=== PATIENT | female | born 1980 | race Caucasian/White ===

== ENCOUNTER 2023-07-01 18:48 | Emergency (ER) | payer SELFPAY ==
--- OUTSIDE RECORDS SUMMARY | 2023-07-01 18:54 | XMS REPORT | Continuity of Care Document ---
:1980 Author Organization Formerly [facility] t Address [address] [facility] [address] [place] [address] Care Team Providers Name Role Phone Clem Sena Primary Care Physician collins Attending Clinician Unavailable HOLLY KERR Attending Clinician Unavailable Clem Sena Attending Clinician Valdo Crespo Attending Clinician VALDO CRESPO Attending Clinician Unavailable Du Orozco Attending Clinician Unavailable Alicja Laguerre Attending Clinician Keena Joya Attending Clinician Nikos Joshi Attending Clinician Physician, No Primary or Family Admitting Clinician Unavaila ble Payers Payer Name Policy Type Policy Number Effective Date Expiration Date S savita [employer] CHIP [id number] 2020 2022 00:00:00 00:00:00 [employer] P [id number] 2018 00:00:00 [employer] P [id number] 2020 00:00:00 Problems Condition Condition Condition Status Onset Resolution Last Treating Co mments Source Name Details Category Date Date Treatment Clinician Date Hydrosalpi Hydrosalp Diagnosis Active 2022-11-12 Memoria nx inx 11-09 05:46:12 l (disorder) (disorder) 00:00: Dony pankaj Active 00 11/09/2022 Diagnosis 11/12/2022 [facility] VAG BLEED VAG BLEED Diagnosis Active 2022-11-27 Memoria Active 11-09 14:22:00 l 11/09/2022 00:00: Alexis johnson [address],[facility] Disturbanc Disturban Diagnosis Active 2021-082022-08-03 Memoria e of ce of 10-01 10:49:01 l attention attention 00:00: Chirag elizabeth (finding) (finding) 00 Active 07/31/2022 Diagnosis 08/03/2022 [facility] Primary [facility] Tired Tired Diagnosis Active 2021-082022-08-03 Mem oria (finding) (finding) 10-01 10:49:01 l Active 00:00: [place] 07/31/2022 00 Diagnosis 08/03/2022 [facility] Primary [facility] ARM ARM Diagnosis Active 2020-10-14 Mem oria PAIN/INJUR PAIN/INJUR 10-06 21:42:00 l Y Y Active 00:00: [place] 10/06/2020 00 [facility] EYE PAIN EYE PAIN Diagnosis Active 2013-12-31 Memoria Active 12-31 15:33:00 l 12/31/2013 00:00: Alexis johnson [address] DIZZY, DIZZY, Diagnosis Active 2011-05-10 Me moria VOMITING VOMITING 05-10 09:55:00 l Active 07:00: [place] 05/10/2011 00 [facility] Ectopic Ectopic Problem Resolve 2020-10-08 M emoria d 23:03:55 l (disorder) (disorder) Dony pankaj Resolved Problem 10/08/2020 [facility] Obese Obese Problem Active 2023-01-04 Adán olivia class I class I 12:26:32 l (finding) (finding) Chirag elizabeth Active Problem 01/04/2023 [facility] Primary Care [facility] CCC Migraine Migraine Problem Active 2023-01-04 Memoria with aura with aura 12:26:32 l (disorder) (disorder) He rmann Active Problem 01/04/2023 [facility] Poor Poor Problem Active 2023-01-04 Memor ia concentrat concentrat 12:26:32 l ion ion [place] (finding) (finding) Active Problem 01/04/2023 [facility] History of Past Illness Condition Condition Condition Status Onset Resolution Last Treating Co mments Source Name Details Category Date Date Treatment Clinician Date Impaired Impaired Diagnosis 2023-01-04 2023-01-04 Memoria cognition cognition 01-01 12:26:32 12:26:32 l (finding) (finding) 15:25: Herm glenn 01/01/2023 00 Diagnosis 01/04/2023 [facility] Obesity Obesity Diagnosis 2022-11-19 2022-11-19 Memoria (disorder) (disorder) 11-16 11:31:49 11:31:49 l 11/16/2022 20:47: Alexis n Diagnosis 00 11/19/2022 [facility] Chronic Chronic Diagnosis 2022-11-12 2022-11-12 Memoria salpingiti salpingiti 11-10 05:46:12 05:46:12 l s s 01:19: [place] (disorder) (disorder) 00 11/10/2022 Diagnosis 11/12/2022 [facility] Female Female Diagnosis 2021-082022-08-03 2022-08-03 Memoria infertilit infertilit 10-01 10:49:01 10:49:01 l y y 16:30: [place] (disorder) (disorder) 00 07/31/2022 Diagnosis 08/03/2022 [facility] Fatigue Fatigue Diagnosis 2021-082022-08-03 2022-08-03 Memoria (finding) (finding) 10-01 10:49:01 10:49:01 l 07/31/2022 16:30: Alexis n Diagnosis 00 08/03/2022 [facility] Restless Restless Diagnosis 2021-082022-08-03 2022-08-03 Memoria legs legs - 10:49:01 10:49:01 l (disorder) (disorder) 16:29: He rmann 2 Diagnosis 08/03/2022 [facility] Patient Patient Diagnosis 2021-082022-08-03 2022-08-03 Memoria encounter encounter 10-01 10:49:01 10:49:01 l status status 16:14: [place] (finding) (finding) 00 07/31/2022 Diagnosis 08/03/2022 [facility] Unspecifie Unspecifi Problem 2020-10-08 2020-10-08 Memoria d fracture ed 10-06 23:03:55 23:03:55 l of right fracture 18:00: Alexis johnson forearm, of right 00 initial forearm, encounter initial for closed encounter fracture for closed fracture 10/06/2020 10/08/2020 [facility] Discharge Discharge Problem 2013-082014-05-20 2014-05-20 Memoria Diagnosis: Diagnosis: 0-05 03:26:54 03:26:54 l Miscarriag Miscarriag 05:00: Dony lira e e 00 05/17/2014 05/20/2014 [facility] Allergies, Adverse Reactions, Alerts Allergy Allergy Status Severity Reaction(s) Onset Inactive Treating Comm ents Source Name Type Date Date Clinician No Known DA Active [facility]ie 02-24 [place] s 00:00: [facility] 00 [place] [facility] Social History Social Habit Start Date Stop Date Quantity Comments Source History [facility] Alcohol Std Drinks Sexual [facility] Exposure to 2022-12-18 2022-12-28 Not sure [facility] SARS-CoV-2 (event) 00:00:00 07:26:00 Alcohol intake 2022-12-28 2022-12-28 Lifetime [facility] 00:00:00 00:00:00 non-drinker (finding) Tobacco use and 2022-12-11 2022-12-11 Smokeless [facility] exposure 00:00:00 00:00:00 tobacco non-user History SDPA 2022-12-11 2022-12-11 1 [facility] Alcohol Frequency 00:00:00 00:00:00 History SDOH 2022-12-11 2022-12-11 1 [facility] Alcohol Binge 00:00:00 00:00:00 Education 2022-12-11 2022-12-11 8 [facility] 00:00:00 00:00:00 Sex [birth year] At [birth year] [facility] 00:00:00 00:00:00 Hospital Smoking Status Start Date Stop Date Source Tobacco smoking consumption unknown [facility] Tobacco smoking status [facility] Medications Ordered Filled Start Stop Current Ordering Indication Dosage Frequency Signature Comments Components Source Medication Medication Date Date Medication? Clinician (SIG) Name Name SUMAtriptan Yes See Memori a 50 mg oral 5-05 Instructio l tablet 17:07: ns, TAKE 1 Yulissa nn 00 TABLET BY MOUTH ONCE NEEDED FOR HEADACHE *MAY REPEAT IN 2 HOURS IF NEEDED MAX 2/24 HOURS*, # 9 tab, 0 Refill(s), Pharmacy: [id number], 162.56, cm, 11/16/22 15:18:00 CDT, Height, 87.869, kg, 11/16/22 15:18:00 CDT, Weight SUMAtriptan Yes 50 mg = 1 M emoria 50 mg oral 4-06 tab, PO, l tablet 20:48: ONCE, PRN Alexis n Headache, may repeat dose in 2 hours if needed, maximum 2 tablets in 48 hours, # 9 tab, 0 Refill(s), Pharmacy: [id number], 162.56, cm, 11/16/22 15:18:00 CDT, Height, 87.869, kg, 11/16/22 15:18:00 CDT, Weight doxycycline Yes 100 mg = 1 Memoria monohydrate 3-31 tab, PO, l 100 mg oral 01:19: Q12H, X 10 [place] tablet day, # 20 tab, 0 Refill(s) Flagyl 500 Yes 500 mg = 1 M emoria mg oral 3-31 tab, PO, l tablet 01:19: Q8H, X 10 Alexis n day, # 30 tab, 0 Refill(s) gabapentin 2021-08 Yes 100 mg, Adán olivia 2-19 PO, 0 l 16:13: Refill(s) [place] 00 Acetaminoph No 1 tab, Adán olivia en 325 MG / 2-24 Route: PO, l Hydrocodone 19:44: Drug Form: [place] Bitartrate 00 TAB, 10 MG Oral Dosing Tablet Weight [Paradise 76.818, 10/325] kg, ONCE, STAT, Start date: 10/06/20 13:44:00 [employer]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 [place] 00 (Same as: Tylenol) Saline 2013-08 No Notes: Memoria Flush 0.9% 0-05 (Same as: l 23:33: BD [place] 00 Posiflush) ondansetron Yes Martha 4 mg, 1 Memoria 4 mg oral 05-10 Kat[place] tab, PO, l tablet, 16:38: ONCE, 3 [place] disintegrat 45 tab, ing Substituti on Allowed, Disolve tab under tongueDiso lve tab under tongue tetanus-dip No Martha 0.5 ml, Memoria htheria 05-10 [place] Route: IM, l toxoids 14:05: Drug Form: Herm glenn 00 INJ, ONCE, Start date: 05/10/11 9:05:00, Stop date: 05/10/11 9:05:00 ondansetron No Martha 4 mg, 2 Memoria 05-10 [place] mL, Route: l 14:05: IVP, Drug [place] 00 form: INJ, ONCE, Priority: STAT, Start date: 05/10/11 9:05:00, Stop date: 05/10/11 9:05:00 Saline No Martha 5 ml, Memor ia Flush 0.9% 05-10 [place] Route: l 14:05: IVP, Drug [place] 00 Form: INJ, PRN, PRN Line Flush, Start date: 05/10/11 9:05:00, Duration: 30 day, Stop date: 06/09/11 9:04:00 Lactated No Martha 1,000 mL, Memoria Ringers 05-10 [place] Rate: l (Bolus) IV 14:05: 1,000 Alexis n 1,000 mL 00 ml/hr, Infuse over: 1 hr, Route: IV, Total Volume: 1,000, Bolus Dose, Priority: STAT, Start date: 05/10/11 9:05:00, Duration: 1 doses or times, Stop date: 05/10/11 10:04:00 Immunizations Ordered Immunization Filled Immunization Date Status Commen ts Source Name Name [id number] Unknown Completed Mem orial [place] [id number] Unknown Completed Mem orial [place] [id number] Unknown Completed Mem orial [place] [id number] diphtheria/pertussis, Unknown Completed Mem orial [place] acel/tetanus adult Vital Signs Vital Name Observation Time Observation Value Comments Source Systolic blood 2022-12-28 13:00:00 123 mm[Hg] [facility] Diastolic blood 2022-12-28 13:00:00 80 mm[Hg] [facility] Heart rate 2022-12-28 13:00:00 74 /min [facility] temperature 2022-12-28 13:00:00 36.89 [facility] height 2022-12-28 13:00:00 [facility].6 [facility] weight 2022-12-28 13:00:00 88.814 [facility] BMI 2022-12-28 13:00:00 33.61 [facility]m2 [facility] Systolic blood 2022-12-11 14:01:00 111 mm[Hg] [facility] Diastolic blood 2022-12-11 14:01:00 75 mm[Hg] [facility] Heart rate 2022-12-11 14:01:00 68 /min [facility] 2022-12-11 14:01:00 36.67 [facility] Respiratory rate 2022-12-11 14:01:00 15 /min [facility] Body height 2022-12-11 14:01:00 162.6 [facility] weight 2022-12-11 14:01:00 [facility]451 [facility] BMI 2022-12-11 14:01:00 33.47 [facility]m2 [facility] Heart Rate 2023-01-01 14:52:00 [facility] [place] Systolic (mm Hg) 2023-01-01 14:52:00 Adán rial [place] Diastolic (mm Hg) 2023-01-01 14:52:00 Mem orial [place] Height 2023-01-01 14:52:00 5 [ft_i] [facility] [place] Weight 2023-01-01 14:52:00 [facility] [place] BMI Calculated 2023-01-01 14:52:00 Memori al [place] Temperature Oral (F) 2022-11-16 20:18:00 98.1 F [facility] [place] Heart Rate 2022-11-16 20:18:00 [facility] [place] Systolic (mm Hg) 2022-11-16 20:18:00 Adán rial [place] Diastolic (mm Hg) 2022-11-16 20:18:00 Mem orial [place] Height 2022-11-16 20:18:00 5 [ft_i] [facility] [place] Weight 2022-11-16 20:18:00 [facility] [place] BMI Calculated 2022-11-16 20:18:00 Memori al [place] Temperature Oral (F) 2022-11-10 01:28:00 98 F [facility] [place] Heart Rate 2022-11-10 01:28:00 [facility] [place] Systolic (mm Hg) 2022-11-10 01:28:00 Adán rial [place] Diastolic (mm Hg) 2022-11-10 01:28:00 Mem orial [place] Height 2022-11-09 18:45:00 5 [ft_i] [facility] [place] BMI Calculated 2022-11-09 18:45:00 Memori al [place] Weight 2022-11-09 18:45:00 [facility] [place] Temperature Oral (F) 2022-07-31 16:15:00 98.2 F [facility] [place] Heart Rate 2022-07-31 16:15:00 [facility] [place] Systolic (mm Hg) 2022-07-31 16:15:00 Adán rial [place] Diastolic (mm Hg) 2022-07-31 16:15:00 Mem orial [place] Height 2022-07-31 16:15:00 5 [ft_i] [facility] [place] Weight 2022-07-31 16:15:00 [facility] [place] BMI Calculated 2022-07-31 16:15:00 Memori al [place] Temperature Oral (F) 2020-10-06 20:00:00 98.2 F [facility] [place] Heart Rate 2020-10-06 20:00:00 [facility] [place] Respitory Rate 2020-10-06 20:00:00 Memori al [place] Systolic (mm Hg) 2020-10-06 20:00:00 Adán rial [place] Diastolic (mm Hg) 2020-10-06 20:00:00 Mem orial [place] Height 2020-10-06 18:32:00 170.18 cm [facility] [place] BMI Calculated 2020-10-06 18:32:00 Memori al [place] Weight 2020-10-06 18:32:00 [facility] [place] Systolic (mm Hg) 2020-10-06 18:32:00 Adán rial [place] Diastolic (mm Hg) 2020-10-06 18:32:00 Mem orial [place] Heart Rate 2020-10-06 18:32:00 [facility] [place] Respitory Rate 2020-10-06 18:32:00 Memori al [place] Temperature Oral (F) 2020-10-06 18:32:00 98.0 F [facility] [place] Systolic (mm Hg) 2014-05-18 02:01:00 Daán rial [place] Diastolic (mm Hg) 2014-05-18 02:01:00 Mem orial [place] Respitory Rate 2014-05-18 02:01:00 Memori al [place] Heart Rate 2014-05-18 02:01:00 [facility] [place] Systolic (mm Hg) 2014-05-18 00:46:00 Adán rial [place] Diastolic (mm Hg) 2014-05-18 00:46:00 Mem orial [place] Heart Rate 2014-05-18 00:46:00 [facility] [place] Respitory Rate 2014-05-18 00:46:00 Memori al [place] Height 2014-05-17 23:25:00 160.02 cm [facility] [place] BMI Calculated 2014-05-17 23:25:00 Memori al [place] Weight 2014-05-17 23:25:00 [facility] [place] Diastolic (mm Hg) 2014-05-17 23:25:00 Mem orial [place] Systolic (mm Hg) 2014-05-17 23:25:00 Adán rial [place] Heart Rate 2014-05-17 23:25:00 [facility] [place] Respitory Rate 2014-05-17 23:25:00 Memori al [place] Temperature Oral (F) 2014-05-17 23:25:00 98.4 F [facility] [place] Respitory Rate 2013-12-31 20:26:00 Memori al [place] Heart Rate 2013-12-31 20:26:00 [facility] [place] Temperature Oral (F) 2013-12-31 20:26:00 97.1 F [facility] [place] Diastolic (mm Hg) 2013-12-31 20:26:00 Mem orial [place] Systolic (mm Hg) 2013-12-31 20:26:00 Adán rial [place] Height 2013-12-31 18:49:00 162.56 cm [facility] [place] Weight 2013-12-31 18:49:00 [facility] [place] BMI Calculated 2013-12-31 18:49:00 Memori al [place] Heart Rate 2013-12-31 18:49:00 [facility] [place] Systolic (mm Hg) 2013-12-31 18:49:00 Adán rial [place] Respitory Rate 2013-12-31 18:49:00 Memori al [place] Diastolic (mm Hg) 2013-12-31 18:49:00 Mem orial [place] Temperature Oral (F) 2013-12-31 18:49:00 97.4 F [facility] [place] Systolic (mm Hg) 2011-05-10 16:36:00 Adán rial [place] Diastolic (mm Hg) 2011-05-10 16:36:00 Mem orial [place] Respitory Rate 2011-05-10 16:36:00 Memori al [place] Heart Rate 2011-05-10 16:36:00 [facility] [place] Height 2011-05-10 13:36:00 160.02 cm [facility] [place] Weight 2011-05-10 13:36:00 [facility] [place] Temperature Oral (F) 2011-05-10 13:36:00 97.6 F [facility] [place] Systolic (mm Hg) 2011-05-10 13:36:00 Adán rial [place] Heart Rate 2011-05-10 13:36:00 [facility] [place] Diastolic (mm Hg) 2011-05-10 13:36:00 Mem orial [place] Respitory Rate 2011-05-10 13:36:00 Memori al [place] Procedures Procedure Date / Time Performed Performing Clinician Sourc e POCT , URINE 2022-12-28 13:03:24 Holly [place] [facility] Pap smear and HPV 2022-12-28 05:00:00 [facility] cotesting Ovary operation [facility] Plan of Care Planned Activity Planned Date Details Comments Source Future Scheduled 2023-06-09 [facility] 20:44:26 (#1) [code = COVID-19 VACCINE (#1)] Future Scheduled 2023-06-09 Hepatitis C [facility] ospital Test 20:44:26 screening (procedure) [code = 422596040] Future Scheduled 2023-06-09 Screening for [facility] Test 20:44:26 malignant neoplasm of cervix (procedure) [code = 414312672] Future Scheduled 2023-06-09 BREAST CANCER [facility] Test 20:44:26 SCREENING [code = BREAST CANCER SCREENING] Future Scheduled 2023-06-09 INFLUENZA VACCINE Method [facility] Test 20:44:26 (#1) [code = INFLUENZA VACCINE (#1)] Encounters Start End Encounter Admission Attending Care Care Encounter Source Date/Time Date/Time Type Type Clinicians Facility Department ID 2023-01-[address] [facility] [id number] [place] 06:24:13 [id number] [facility] 2022-12-[address] [facility] [id number] [place] 08:31:44 [id number] [facility] 2022-11-[address] [facility] [id number] [place] 15:29:12 [id number] [facility] 2022-07-31 Outpatient lc.nyarp [facility] [id number] [place] 11:01:03 [id number] [facility] 2022-03-[address] [facility] [id number] [place] 08:32:11 [id number] [facility] 2021-05-26 Outpatient [facility] [id number] [place] 18:37:42 [id number] [facility] 2021-05-26 Outpatient [facility] [id number] [place] 18:00:31 [id number] [facility] 2023-01-12 2023-01-12 Outpatient TAT, [facility] [id number] [place] 08:50:00 08:50:00 HOLLY Hudson 2023-01-112023-01-11 Outpatient TAT, [facility] [id number] [place] 08:20:00 08:20:00 HOLLY phelps 2023-01-01 2023-01-02 Outpatient [facility] [id number] Memoria 15:00:00 04:59:59 Primary 03 l [facility] 2023-01-01 2023-01-01 Outpatient Jaida, [facility] [id number] 10:00:00 23:59:59 Clem 03 [facility] 2023-01-01 2023-01-01 Outpatient MHIE [facility] [id number] Memoria 10:00:00 10:00:00 03 l [place] 2022-12-28 2022-12-28 Ambulatory [facility] [id number] Memoria 20:20:00 20:20:00 Pre-Reg Primary 02 l [facility] 2022-12-28 2022-12-28 Outpatient MHIE [facility] [id number] Memoria 15:20:00 15:20:00 02 linda Wick 2022-12-28 2022-12-28 Outpatient Jaida, [facility] [id number] 15:20:00 15:20:00 Clem 02 [facility] 2022-12-28 2022-12-28 Procedure Tat, [facility] [id number] [place] 08:30:00 08:39:29 Visit Holly CHAN [id number] [facility] [id number] MEDICAL [id number] [address] 2 2022-12-21 2022-12-21 Outpatient TAT, [facility] [id number] [place] 09:10:00 09:10:00 HOLLY Hudson 2022-12-11 2022-12-11 Office Tat, [facility] [id number] [place] 09:30:00 10:07:39 Visit Holly LOPEZ [id number] H [facility] [id number] SPECIALTY [id number] CLINIC 5 2022-11-17 2022-11-17 Outpatient TAT, [facility] [id number] [place] 08:45:00 08:45:00 HOLLY phelps 2022-11-16 2022-11-17 Outpatient MHIE MG [id number] Memoria 20:20:00 04:59:59 Primary 01 l [facility] 2022-11-16 2022-11-16 Outpatient Jaida, MHMG MG [id number] 15:20:00 23:59:59 Clem 01 Guy 2022-11-16 2022-11-16 Outpatient MHIE IE [id number] Memoria 15:20:00 15:20:00 01 l [place] 2022-11-09 2022-11-10 Emergency MHIE [facility] [id number] Memoria 18:44:10 01:31:[address] 2022-11-09 2022-11-09 Outpatient Cherie, MHGHR MHR [id number] 13:44:10 20:31:00 Valdo Rosita Yoel 2022-11-09 2022-11-09 Emergency E CHERIE, MHNW MHNW [id number] MHNW 13:44:00 20:31:00 VALDO 2022-08-01 2022-08-02 Between MHIE MG [id number] Memoria 15:16:42 15:16:42 Visit Primary 06 [facility] 2022-08-01 2022-08-02 Outpatient MHMG MG [id number] 09:16:42 09:16:42 06 2022-07-31 2022-08-01 Outpatient MHIE MG [id number] Memoria 16:30:00 05:59:59 Primary 00 l [facility] 2022-07-31 2022-07-31 Outpatient Jaida, YADIRAMG MG [id number] 10:30:00 23:59:59 Clem 00 Guy 2022-07-31 2022-07-31 Outpatient MHIE MHIE [id number] Memoria 10:30:00 10:30:00 00 linda Wick 2022-02-24 2022-02-24 Emergency Du Navarrete [facility] [id number] [facility] 19:42:00 20:49:00 38 [facility] 2022-02-24 2022-02-24 Emergency Du Navarrete [facility] [id number] 19:42:00 19:42:00 [id number] [place] [facility] 2020-12-15 2020-12-16 Emergency [facility] [id number] [place] 00:00:00 00:00:[address] 2020-10-06 2020-10-06 Emergency [facility] [id number] Memoria 17:05:16 20:32:[address] 2020-10-06 2020-10-06 Outpatient Carlotta [facility] [id number] 11:05:16 14:32:00 Alicja 04 Nieves 2014-05-17 2014-05-18 [facility] [id number] Memoria 23:12:00 02:11:[address] 2014-05-17 2014-05-17 Outpatient Mahnaz, 2.16.840. [id number] 18:12:00 21:11:00 Keena [id number] Quy[place] [id number] 3677-05-21 2013-12-31 [facility] [id number] Memoria 18:28:00 21:09:[address] 2013-12-31 2013-12-31 Outpatient Callielynn, 2.16.840. [id number]. [id number] 13:28:00 16:09:00 Tatsuo [id number] 5108-09-28 2011-05-10 Emergency [facility] 37 [id number] Memoria 08:34:00 12:19:[address] Results Test Description Test Time Test Comments Results Result Comments Source POCT , urine manually resulted 2022-12-28 13:03:24 Test Item Value Reference Range Interpretation Comme nts Preg Test, Ur (test code = 7975138) Negative Negative Lab Interpretation (test code = 46629-6) [id number] 01:16:00 Test Item Value Reference Range Interpretation Comments Source APTIMA (test Vaginal *NA*(11/09/22 code = Source APTIMA) 8:16 PM) [facility]2023-03-31 01:16:00 Test Item Value Reference Range Interpretation Comments C trachomatis by Amp Det Negative (11/09/22 (APTIMA) (test code = C 8:16 PM) trachomatis by Amp Det (APTIMA)) [facility]2023-03-31 01:16:00 Test Item Value Reference Range Interpretation Comments N gonorrhea by Amp Det Negative (11/09/22 8:16 (APTIMA) (test code = N PM) gonorrhea by Amp Det (APTIMA)) [place] [id number] 23:36:03 Test Item Value Reference Range Interpretation Comments RADRPT (test code PROCEDURE INFORMATION: = RADRPT) Exam: US Pelvis Complete, Transabdominal and US Pelvis, Transvaginal Exam date and time: 11/09/2022 4:16 PM Age: 42 years old Clinical indication: /pelvic pain, not , recent spontaneous ab; () TECHNIQUE: Imaging protocol: Real-time complete transabdominal and transvaginal pelvic ultrasound with image documentation. Transvaginal imaging was used for better evaluation of the endometrium, adnexa, and/or cervix. COMPARISON: PREG < 14WKS SING GEST W TRANSVAG/DOP US 05/17/2014 7:03 PM FINDINGS: Uterus: Uterus measures 8.9 cm length. Endometrial stripe measures 1.2 cm thickness. Cervix: Nabothian cyst. Right ovary/adnexa: Right ovary measures 4.1 x 2.3 x 2.9 cm with Doppler flow. Left ovary/adnexa: Left ovary measures 2.7 x 1.7 x 1.6 cm with Doppler flow. Hypoechoic tubular, avascular focus in the left adnexa. Intraperitoneal space: No free fluid is seen. Urinary bladder: The bladder is under distended. IMPRESSION: 1. No evidence of retained products of conception. 2. Probable left hydrosalpinx. Follow-up ultrasound can reassess. Jon Coronado MD On 11/09/2022 18:35:46; [id number] [place] [id number] 19:46:00 Test Item Value Reference Range Interpretation Comments UA Color (test code = Yellow *NA*(11/09/22 UA Color) 2:46 PM) [facility] AND [id number] 19:46:00 Test Item Value Reference Range Interpretation Comments UA Turbidity (test code Slight *ABN*(11/09/22 = UA Turbidity) 2:46 PM) [facility] AND [id number] 19:46:00 Test Item Value Reference Range Interpretation Comments UA Spec Grav (test code = UA Spec 1.020 1 Grav) [facility] AND [id number] 19:46:00 Test Item Value Reference Range Interpretation Comments UA pH (test code = UA pH) 5.0 1 5.0-8.0 [facility] AND [id number] 19:46:00 Test Item Value Reference Range Interpretation Comments UA Protein (test code = UA Negative mg/dL Protein) [facility] AND [id number] 19:46:00 Test Item Value Reference Range Interpretation Comments UA Glucose (test code = UA Negative mg/dL Glucose) [facility] AND [id number] 19:46:00 Test Item Value Reference Range Interpretation Comments UA Bili (test code = Negative *NA*(11/09/22 UA Bili) 2:46 PM) [facility] AND [id number] 19:46:00 Test Item Value Reference Range Interpretation Comments UA Blood (test code = Large *ABN*(11/09/22 UA Blood) 2:46 PM) [facility] AND [id number] 19:46:00 Test Item Value Reference Range Interpretation Comments UA Nitrite (test code Negative (11/09/22 2:46 = UA Nitrite) PM) [facility] AND [id number] 19:46:00 Test Item Value Reference Range Interpretation Comments UA Leuk Est (test Negative (11/09/22 2:46 code = UA Leuk Est) PM) [facility] AND [id number] 19:46:00 Test Item Value Reference Range Interpretation Comments UA Ascorbic Acid (test Negative 2*NA*(11/09/22 code = UA Ascorbic 2:46 PM) Acid) [facility] AND [id number] 19:46:00 Test Item Value Reference Range Interpretation Comments UA Sq Epi (test code = UA Sq Epi) Few /LPF [facility] [id number] 19:46:00 Test Item Value Reference Range Interpretation Comments UA WBC (test code = UA WBC) 2 <=5 [facility] [id number] 19:46:[facility] Test Item Value Reference Range Interpretation Comments UA RBC (test code = UA RBC) 4 <=2 [facility] [id number] 19:46:00 Test Item Value Reference Range Interpretation Comments UA Mucus (test code = UA Mucus) Few /LP[facility] [id number] 19:46:00 Test Item Value Reference Range Interpretation Comments UA Ketones (test code = UA Ketones) Negative [facility] AND [id number] 19:46:00 Test Item Value Reference Range Interpretation Comments UA Urobilinogen (test code = UA <=1.0 mg/dL 0.1-1.0 Urobilinogen) [facility] Hospit[id number] 19:28:00 Test Item Value Reference Range Interpretation Comments WBC (test code = WBC) 12.4 3.7-10.4 [facility] HospitalYmibrjbYUEVOOPWNC7623-34-16 19:28:00 Test Item Value Reference Range Interpretation Comments RBC (test code = RBC) 4.66 4.20-5.40 [facility] HospitalSkehrinCPGASDYRMU8311-80-38 19:28:00 Test Item Value Reference Range Interpretation Comments Hgb (test code = Hgb) 12.8 12.0-16.0 [facility] HospitalRblgixdFUGMOUQWTL2714-62-54 19:28:00 Test Item Value Reference Range Interpretation Comments Hct (test code = Hct) 37.4 36.0-48.0 [facility] HospitalLwsgzzaDCFZBLOFTT8934-68-18 19:28:00 Test Item Value Reference Range Interpretation Comments MCV (test code = MCV) 80.4 80.0-98.0 [facility] HospitalMviozkdTUYNSGOGMO6411-42-51 19:28:00 Test Item Value Reference Range Interpretation Comments MCH (test code = MCH) 27.4 pg 27.0-31.0 [facility] HospitalSmvnxnlNSCJIVKDTP6679-49-90 19:28:00 Test Item Value Reference Range Interpretation Comments MCHC (test code = MCHC) 34.1 32.0-36.0 [facility] HospitalKpttshhGVDTPHRQML7736-78-13 19:28:00 Test Item Value Reference Range Interpretation Comments RDW (test code = RDW) 14.1 11.5-14.5 [facility] HospitalWcrzkemZHIJOBVAWR5624-82-67 19:28:00 Test Item Value Reference Range Interpretation Comments Platelet (test code = Platelet) 298 133-450 [facility] HospitalJfgrkomQBIIFURBJQ4480-44-26 19:28:00 Test Item Value Reference Range Interpretation Comments MPV (test code = MPV) 7.2 7.4-10.4 [facility] HospitalRwsebhvNKTJOHOIYC2275-88-20 19:28:00 Test Item Value Reference Range Interpretation Comments Segs (test code = Segs) 68.1 45.0-75.0 [facility] HospitalGkahehvZCBALFOOFG9479-76-53 19:28:00 Test Item Value Reference Range Interpretation Comments Lymphocytes (test code = Lymphocytes) 24.6 20.0-40.0 [facility] HospitalIymjwoqKAVXSUFCWP5399-53-27 19:28:00 Test Item Value Reference Range Interpretation Comments Monocytes (test code = Monocytes) 4.8 2.0-12.0 [facility] HospitalUlwhlvmGBMZNRHMLZ2837-33-04 19:28:00 Test Item Value Reference Range Interpretation Comments Eosinophils (test code = Eosinophils) 2.0 <=4.0 [facility] HospitalBjggarzJHBHHLKYTY8618-29-75 19:28:00 Test Item Value Reference Range Interpretation Comments Basophils (test code = Basophils) 0.5 <=1.0 [facility] HospitalIkuqpzrEXEYEUXNXJ5233-91-53 19:28:00 Test Item Value Reference Range Interpretation Comments Neutrophils # (test code = Neutrophils 8.4 1.5-8.1 #) [facility] HospitalCfsdcdoBYNNMIFVEQ9980-29-04 19:28:00 Test Item Value Reference Range Interpretation Comments Lymphocytes # (test code = Lymphocytes 3.0 1.0-5.5 #) [facility] HospitalKixgbftJXOVDCPFUT6237-82-39 19:28:00 Test Item Value Reference Range Interpretation Comments Monocytes # (test code = Monocytes #) 0.6 <=0.8 [facility] HospitalKwkemaqTQHPFOGCXZ3870-19-03 19:28:00 Test Item Value Reference Range Interpretation Comments Eosinophils # (test code = Eosinophils 0.2 <=0.5 #) [facility] HospitalVgcgrnpIOIIBYXVCE3132-19-11 19:28:00 Test Item Value Reference Range Interpretation Comments Basophils # (test code = Basophils #) 0.1 <=0.2 [facility]ieVoxliArisoko QQHTHZL6010-34-75 19:28:00 Test Item Value Reference Range Interpretation Comments ABO/Rh (test code = ABO/Rh) O [facility]G [facility] [id number] 19:28:00 Test Item Value Reference Range Interpretation Comments Antibody Scrn (test Negative (11/09/22 2:28 code = Antibody Scrn) PM) [facility]IueipniGMSPDYUXY7784-78-89 19:28:00 Test Item Value Reference Range Interpretation Comments Glucose Lvl (test code = Glucose Lvl) 98 70-99 [facility]ieLparkgqLBYCSHKEE4530-16-82 19:28:00 Test Item Value Reference Range Interpretation Comments BUN (test code = BUN) 20 7-22 [facility]ieMunppmcGPFLBILVI1002-09-72 19:28:00 Test Item Value Reference Range Interpretation Comments Creatinine Lvl (test code = Creatinine 0.80 0.50-1.40 Lvl) [facility]ieOmolxpoBXAHVHMOL1439-34-86 19:28:00 Test Item Value Reference Range Interpretation Comments Sodium Lvl (test code = Sodium Lvl) 136 135-145 [facility]ieZpiommcGEFOYYRJI1887-24-03 19:28:00 Test Item Value Reference Range Interpretation Comments Potassium Lvl (test code = Potassium 3.7 3.5-5.1 Lvl) [facility]ieAzqqwlmGEVMLBTUU5405-67-51 19:28:00 Test Item Value Reference Range Interpretation Comments Chloride Lvl (test code = Chloride Lvl) 108 95-109 [facility]ieTkigkgzXMLAOQERF3187-55-90 19:28:00 Test Item Value Reference Range Interpretation Comments CO2 (test code = CO2) 24 24-32 [facility] ResourcesNchoxwhPDCXVSHYV0653-75-80 19:28:00 Test Item Value Reference Range Interpretation Comments Calcium Lvl (test code = Calcium Lvl) 8.8 8.5-10.5 [facility] ResourcesWhqjikrUPIPALDZT8124-40-68 19:28:00 Test Item Value Reference Range Interpretation Comments Total Protein (test code = Total 7.7 6.4-8.4 Protein) [facility] ResourcesGjblojwXJAWGKHDV5141-83-19 19:28:00 Test Item Value Reference Range Interpretation Comments Albumin Lvl (test code = Albumin Lvl) 3.2 3.5-5.0 [facility] ResourcesSucdoxbXHNXPQOXW0245-24-14 19:28:00 Test Item Value Reference Range Interpretation Comments ALT (test code = ALT) 32 <=65 [facility]IsnwskxXRJJDKXWU8369-00-27 19:28:00 Test Item Value Reference Range Interpretation Comments AST (test code = AST) 15 <=37 [facility] ResourcesPrnxlazVFTSFSTON7400-43-60 19:28:00 Test Item Value Reference Range Interpretation Comments Alk Phos (test code = Alk Phos) 70 39-136 [facility] ResourcesHuhedouAYFJRKGXO5838-19-82 19:28:00 Test Item Value Reference Range Interpretation Comments Bili Total (test code = Bili Total) 0.2 0.2-1.3 [facility]SovqjhfOHWKIQGDZ7579-89-22 19:28:00 Test Item Value Reference Range Interpretation Comments AGAP (test code = AGAP) 7.7 10.0-20.0 [facility] Resour[id number] 19:28:00 Test Item Value Reference Range Interpretation Comments B/C Ratio (test code = B/C Ratio) 25 1 6-25 [facility] ResourcesCgdkreqHPADMBCQG8617-13-44 19:28:00 Test Item Value Reference Range Interpretation Comments Globulin (test code = Globulin) 4.5 2.7-4.2 [facility] ResourcesBkomzrgSPIUCDGZH2472-39-18 19:28:00 Test Item Value Reference Range Interpretation Comments A/G Ratio (test code = A/G Ratio) 0.7 1 0.7-1.6 [facility]OmnmjzvLUULKEFMU1411-19-76 19:28:00 Test Item Value Reference Range Interpretation Comments eGFR (test code = eGFR) 94 [facility] ResourcesDqzkjmqEBEDOMSUP0764-24-39 19:28:00 Test Item Value Reference Range Interpretation Comments Lipase Lvl (test code = Lipase Lvl) 75 73-393 [facility] ResourcesFqogdotOKOEQFSOS6162-50-79 19:28:00 Test Item Value Reference Range Interpretation Comments S Preg (test code = S Negative *NA*(11/09/22 Preg) 2:28 PM) [facility] ResourcesXnimuwvKNVJBLPJQ8181-70-23 16:55:00 Test Item Value Reference Range Interpretation Comments Glucose Lvl (test code = Glucose Lvl) 82 65-99 [place] [id number] 16:55:00 Test Item Value Reference Range Interpretation Comments BUN (test code = BUN) 20 7-25 [facility] ResourcesUihggzsPADKUGCMB6277-96-99 16:55:00 Test Item Value Reference Range Interpretation Comments Creatinine Lvl (test code = Creatinine 0.67 0.50-0.99 Lvl) [facility] ResourcesRjwwpkzWTTZCLHTG2494-23-56 16:55:00 Test Item Value Reference Range Interpretation Comments eGFR (test code = eGFR) 113 [facility] ResourcesTutiyjmGDOVXZPXD8141-50-19 16:55:00 Test Item Value Reference Range Interpretation Comments B/C Ratio (test code = B/C NOT APPLICABLE 02-01 Ratio) [place] [id number] 16:55:00 Test Item Value Reference Range Interpretation Comments Sodium Lvl (test code = Sodium Lvl) 140 135-146 [facility] ResourcesStwlyybXUCLKKPLC8613-61-11 16:55:00 Test Item Value Reference Range Interpretation Comments Potassium Lvl (test code = Potassium 4.8 3.5-5.3 Lvl) [facility] ResourcesJucdqzsCGVVQMAMV9110-53-41 16:55:00 Test Item Value Reference Range Interpretation Comments Chloride Lvl (test code = Chloride Lvl) 105 98-110 [facility] ResourcesVjvqextACJFCXCYI9695-89-04 16:55:00 Test Item Value Reference Range Interpretation Comments CO2 (test code = CO2) 25 20-32 [facility] ResourcesUchtmmtODBPMVZAM7773-86-57 16:55:00 Test Item Value Reference Range Interpretation Comments Calcium Lvl (test code = Calcium Lvl) 8.9 8.6-10.2 [facility] ResourcesXmwpnzgKJWMMEPIT5573-64-44 16:55:00 Test Item Value Reference Range Interpretation Comments Total Protein (test code = Total 7.3 6.1-8.1 Protein) [facility]OmtszhrVQLSEJUNL9624-40-57 16:55:00 Test Item Value Reference Range Interpretation Comments Albumin Lvl (test code = Albumin Lvl) 4.0 3.6-5.1 [facility] ResourcesJuvpezzOWMLLQPWY8410-93-65 16:55:00 Test Item Value Reference Range Interpretation Comments Globulin (test code = Globulin) 3.3 1.9-3.7 [facility]VmoftbjVMXRXFOQI9173-82-49 16:55:00 Test Item Value Reference Range Interpretation Comments A/G Ratio (test code = A/G Ratio) 1.2 1.0-2.5 [facility]PrrtwnaLNJKLMBSF9677-10-91 16:55:00 Test Item Value Reference Range Interpretation Comments Bili Total (test code = Bili Total) 0.4 0.2-1.2 [facility] ResourcesDqymztyZJKDPYFHY5891-19-56 16:55:00 Test Item Value Reference Range Interpretation Comments Alk Phos (test code = Alk Phos) 60 31-125 [facility] ResourcesQjygtuhGJGWUAMCA0177-76-24 16:55:00 Test Item Value Reference Range Interpretation Comments ASPARTATE TRANSAMINASE (test code = 14 10-30 ASPARTATE TRANSAMINASE) [facility]EnxfftkNZESESSSH2871-15-85 16:55:00 Test Item Value Reference Range Interpretation Comments ALANINE AMINOTRANSFERASE (test code = 21 6-29 ALANINE AMINOTRANSFERASE) [facility] ResourcesMjmkrrfOVYJYEVYF0859-81-94 16:55:00 Test Item Value Reference Range Interpretation Comments Chol (test code = Chol) 146 [facility] ResourcesLkgsqacKQJDLROTA1582-86-08 16:55:00 Test Item Value Reference Range Interpretation Comments HDL (test code = HDL) 44 [facility] ResourcesPdsbmfsWERYTIZCC1402-14-89 16:55:00 Test Item Value Reference Range Interpretation Comments Trig (test code = Trig) 89 [facility] ResourcesQzmphajEESCNMAJH6545-53-17 16:55:00 Test Item Value Reference Range Interpretation Comments LDL (Calculated) (test code = LDL 84 (Calculated)) [facility] ResourcesZkohkriRCCSEIQDT7659-92-62 16:55:00 Test Item Value Reference Range Interpretation Comments Chol/HDL Ratio (test code = Chol/HDL 3.3 Ratio) [facility] ResourcesObawrfzXDWHFMLUA3932-40-36 16:55:00 Test Item Value Reference Range Interpretation Comments Non HDL Chol (test code = Non HDL Chol) 102 [facility] ResourcesUemdpqnWEJFKTDEU6742-88-18 16:55:00 Test Item Value Reference Range Interpretation Comments Hgb A1C (test code = Hgb A1C) 5.2 [facility] ResourcesBczyqcwYBUFWGJDD9930-14-90 16:55:00 Test Item Value Reference Range Interpretation Comments TSH (test code = TSH) 2.23 [facility] HospitalGbyjqvlTCEPUHVKRK5034-67-68 16:55:00 Test Item Value Reference Range Interpretation Comments WBC X 10x3 (test code = WBC X 10x3) 8.4 3.8-10.8 [facility] HospitalWevxhbcACMCNLZIZA2930-39-13 16:55:00 Test Item Value Reference Range Interpretation Comments RBC X 10x6 (test code = RBC X 10x6) 4.76 3.80-5.10 [place] 997082-12-19 16:55:00 Test Item Value Reference Range Interpretation Comments Hgb (test code = Hgb) 12.8 11.7-15.5 [facility] HospitalEjdklgxKWJBYNNLFX9535-21-68 16:55:00 Test Item Value Reference Range Interpretation Comments Hct (test code = Hct) 38.5 35.0-45.0 [facility] HospitalUgzbblsUHKPXPEFXF4670-73-21 16:55:00 Test Item Value Reference Range Interpretation Comments MCV (test code = MCV) 80.9 80.0-100.0 [facility] HospitalBjobqwuAEZUJPKPRB5281-14-61 16:55:00 Test Item Value Reference Range Interpretation Comments MCH (test code = MCH) 26.9 pg 27.0-33.0 [facility] HospitalKhkolaqURCUAJFUBT8615-45-00 16:55:00 Test Item Value Reference Range Interpretation Comments MCHC (test code = MCHC) 33.2 32.0-36.0 [facility] HospitalLcrxmacRVGBKEZVZZ7802-67-42 16:55:00 Test Item Value Reference Range Interpretation Comments RDW (test code = RDW) 12.7 11.0-15.0 [facility] HospitalOsuurdcOYFLMOYEGU4271-42-28 16:55:00 Test Item Value Reference Range Interpretation Comments Platelet (test code = Platelet) 335 140-400 [facility] HospitalExdjqwjTOTWNQQQPK6719-30-61 16:55:00 Test Item Value Reference Range Interpretation Comments MPV (test code = MPV) 9.3 7.5-12.5 [place] [id number] 16:55:00 Test Item Value Reference Range Interpretation Comments Neutrophils # (test code = Neutrophils 5065 0715-1126 #) [facility] HospitalRfgzqpuIYHYNGWUJH6692-89-40 16:55:00 Test Item Value Reference Range Interpretation Comments Lymphocytes # (test code = Lymphocytes 3900 850-3900 #) [facility] HospitalBgqynmcDYZVRKKEPL6480-16-55 16:55:00 Test Item Value Reference Range Interpretation Comments Monocytes # (test code = Monocytes #) 462 200-950 [facility] HospitalYiqosmzCDKPAWUKBV8982-07-58 16:55:00 Test Item Value Reference Range Interpretation Comments Eosinophils # (test code = Eosinophils 143 15-500 #) [facility]RmboxurMDRXBNSYBR7295-93-65 16:55:00 Test Item Value Reference Range Interpretation Comments Basophils # (test code = Basophils #) 50 <=200 [facility] FntcidnXLVACBMLII6477-00-70 16:55:00 Test Item Value Reference Range Interpretation Comments Segs (test code = Segs) 60.3 [facility] HospitalFpnbvzdYXMBUUXVZG4868-09-79 16:55:00 Test Item Value Reference Range Interpretation Comments Lymphocytes (test code = Lymphocytes) 31.9 [facility] KgehtijXCIOYJKMJM0679-45-70 16:55:00 Test Item Value Reference Range Interpretation Comments Monocytes (test code = Monocytes) 5.5 [facility] KyrhyfmRSJMIZACRU9976-08-32 16:55:00 Test Item Value Reference Range Interpretation Comments Eosinophils (test code = Eosinophils) 1.7 [facility] EzfqaezVUGCLMDVLN5179-96-01 16:55:00 Test Item Value Reference Range Interpretation Comments Basophils (test code = Basophils) 0.6 [facility] AND [id number] 16:55:00 Test Item Value Reference Range Interpretation Comments UA Color (test code = UA Color) YELLOW [facility] AND [id number] 16:55:00 Test Item Value Reference Range Interpretation Comments UA Turbidity (test code = UA Turbidity) CLEAR [facility] AND [id number] 16:55:00 Test Item Value Reference Range Interpretation Comments UA Spec Grav (test code = UA Spec 1.022 1 1.001-1.035 Grav) [facility] AND [id number] 16:55:00 Test Item Value Reference Range Interpretation Comments UA pH (test code = UA pH) < OR = 5.0 5.0-8.0 [facility] AND [id number] 16:55:00 Test Item Value Reference Range Interpretation Comments UA Glucose (test code = UA Glucose) NEGATIVE [facility] AND [id number] 16:55:00 Test Item Value Reference Range Interpretation Comments UA Bili (test code = UA Bili) NEGATIVE [facility] [id number] 16:55:00 Test Item Value Reference Range Interpretation Comments UA Ketones (test code = UA Ketones) NEGATIVE [facility] [id number] 16:55:00 Test Item Value Reference Range Interpretation Comments UA Blood (test code = UA Blood) TRACE [facility] AND [id number] 16:55:00 Test Item Value Reference Range Interpretation Comments UA Protein (test code = UA Protein) NEGATIVE [facility] AND [id number] 16:55:00 Test Item Value Reference Range Interpretation Comments UA Nitrite (test code = UA Nitrite) NEGATIVE [facility] AND [id number] 16:55:00 Test Item Value Reference Range Interpretation Comments UA Leuk Est (test code = UA Leuk NEGATIVE Est) [facility] AND [id number] 16:55:00 Test Item Value Reference Range Interpretation Comments UA WBC (test code = UA WBC) NONE SEEN [facility] AND [id number] 16:55:00 Test Item Value Reference Range Interpretation Comments UA RBC (test code = UA RBC) 3-10 [facility] AND [id number] 16:55:00 Test Item Value Reference Range Interpretation Comments UA Sq Epi (test code = UA Sq Epi) 0-5 [facility] AND [id number] 16:55:00 Test Item Value Reference Range Interpretation Comments UA Bacteria (test code = UA NONE SEEN Bacteria) [facility] AND [id number] 16:55:00 Test Item Value Reference Range Interpretation Comments UA Hyal Cast (test code = UA Hyal NONE SEEN Cast) [facility] AND [id number] 16:55:00 Test Item Value Reference Range Interpretation Comments UA Comment 2 (test code = UA SEE COMMENT Comment 2) [facility] [id number] 20:40:00 Test Item Value Reference Range Interpretation Comments SODIUM (test code 140 mmol/L 136-145 N Please not e: New = NA) Reference Range Sep 2020 POTASSIUM (test 4.8 mmol/L 3.5-5.1 N code = K) CHLORIDE (test 106 mmol/L 98-107 N Please note: New code = CL) Reference Range Sep 2020 CARBON DIOXIDE 26 mmol/L 20-31 N Please note: New (test code = CO2) Reference Range Sep 2020 GLUCOSE (test code 74 mg/dL 74-106 N Please no te: New = GLU) Reference Range Sep 2020 BLOOD UREA 17 mg/dL 9-23 N Please note: Ne w NITROGEN (test Reference Ran ge Fe code = BUN) 2020 GLOMERULAR >=60 max >60 Units are FILTRATION RATE estimate mL/min mL/min/1. 73m2 The (test code = GFR) estimated glomerular filtration rate is computed usingpatient ra ce, age (>18), sex, and serum creatinin e. If anyof the neede d data elements a re missing the Laboratory carl ot compute an estimation of t he glomerular filtration rate . CREATININE (test 0.70 mg/dL 0.55-1.02 N Please note : New code = CREAT) Reference Rang e Sep 2020 CALCIUM (test code 8.2 mg/dL 8.7-10.4 L Please no te: New = CA) Reference Range Sep 2020 HCG [id number] 20:37:00 Test Item Value Reference Range Interpretation Comments HCG SERUM (test 0 mIU/mL Please note: New Reference code = HCG) Range Sep 2020 INTERPRETATIVE DATA:Beta hCG Quant : Serum s amples from healthy individ ualsSample Category Refere nce Interval mIU/Ml 2.5-97.5 PercentileNon-P regnant Females (Age: 1 7 54) 1.5-4.2 Postmenopausal FemalesAge: >/= 41 1.8-10.1 During (weeks of -defin ded as completed)Intac t human chorionic gonad otropin + the B-subunit Weeks of Gestation Mean (mIUnits/m L) Range (mIUnits/mL)3 1 7.5 5.8 - 71.24 141 9.5 - 7505 1398 217 - 82109 333 9 158 - 390671 10923 36 97 - [id number] 91380 11967 - 1 681392 111118 54331 - [id number] 0 57761 58391 - [id number] 6667 6 20931 - [id number] 94056 24140 - 1502145 10118 1 5422 - [id number] 53030 9 565 - [id number] 52158 8175 - 5 [id number] 00065 0776 - 96029 DATE OF LAST MENSTRUAL PERIOD: 12/18/21CBC W/AUTO [id number] 20:20:00 Test Item Value Reference Range Interpretation Comments WHITE BLOOD CELL (test code = 10.4 x10 3/uL 4.8-10.8 N WBC) RED BLOOD CELL (test code = 4.73 x10 6/uL 4.20-5.40 N RBC) HEMOGLOBIN (test code = HGB) 12.9 g/dL 12.0-16.0 N HEMATOCRIT (test code = HCT) 39.0 % 37.0-47.0 N MEAN CELL VOLUME (test code = 82.5 fL 81.0-99.0 N MCV) MEAN CELL HGB (test code = MCH) 27.3 pg 27-31 N MEAN CELL HGB CONCENTRATION 33.1 G/DL 33-36.5 N (test code = MCHC) RED CELL DISTRIBUTION WIDTH 12.9 % 12.9-16.9 N (test code = RDW) PLATELET COUNT (test code = 350 x10 3/uL 150-440 N PLT) MEAN PLATELET VOLUME (test code 9.2 fL 8.9-12.4 N = MPV) NEUTROPHIL % (test code = NT%) 59.9 % 42.2-75.2 N LYMPHOCYTE % (test code = LY%) 31.8 % 20.5-51.1 N MONOCYTE % (test code = MO%) 5.4 % 1.7-9.3 N EOSINOPHIL % (test code = EO%) 2.2 % 0.0-7.0 N BASOPHIL % (test code = BA%) 0.5 % 0-2.5 N NEUTROPHIL # (test code = NT#) 6.25 x10 3/uL 1.80-7.70 N LYMPHOCYTE # (test code = LY#) 3.32 x10 3/uL 1.00-4.80 N MONOCYTE # (test code = MO#) 0.56 x10 3/uL 0.00-0.80 N EOSINOPHIL # (test code = EO#) 0.23 x10 3/uL 0.00-0.45 N BASOPHIL # (test code = BA#) 0.05 x10 3/uL 0.0-0.20 N UA RFLX MICR CULT IF [id number] 20:19:00 Test Item Value Reference Range Interpretation Comments UA COLOR (test code = YELLOW DISCRIPT YELLOW COLU) UA APPEARANCE (test code = CLEAR DISCRIPT CLEAR APPU) UA GLUCOSE DIPSTICK (test NEGATIVE mg/dL NEGATIVE code = DGLUU) UA BILIRUBIN DIPSTICK NEGATIVE NEGATIVE (test code = BILU) UA KETONE DIPSTICK (test NEGATIVE mg/dL NEGATIVE code = KETU) UA SPECIFIC GRAVITY (test >=1.030 1.005-1.030 code = SGU) UA BLOOD DIPSTICK (test LARGE NEGATIVE A code = EMMY) UA PH DIPSTICK (test code 5.5 5.0-9.0 = MARY) UA PROTEIN DIPSTICK (test NEGATIVE mg/dL NEGATIVE code = PROU) UA UROBILINOGEN DIPSTICK 0.2 mg/dL 0.2-1.0 (test code = URO) UA NITRITE DIPSTICK (test NEGATIVE NEGATIVE code = NAM) UA LEUKOCYTE ESTERASE NEGATIVE NEGATIVE DIPSTICK (test code = LEUU) UA WBC (test code = WBCU) NONE SEEN #WBC/HPF 0-2 UA RBC (test code = RBCU) NONE SEEN #RBC/HPF 0-2 UA BACTERIA (test code = NONE SEEN /HPF NONE-TRACE BACU) UA SQUAMOUS CELLS (test 2+ /LPF NONE-TRACE A code = SQU) Indication for culture: Suprapubic PainUR HCG [id number] 20:19:00 Test Item Value Reference Range Interpretation Comments UR HCG QUAL (test code = HCGQLU) NEGATIVE NEGATIVE Indication for culture: Suprapubic PainDIAG MAMM BILATERAL WILBERT CAD DIGITAL 2021-10-05 11:08:59 Name: [place] : 1980 Sex: F - DIAG MAMM BILATERAL WILBERT CAD DIGITALBILATERAL FIRST EVER DIGITAL DIAGNOSTIC MAMMOGRAM 3D/2D WITH CAD: 10/05/2021LINICAL: Bilateral breast lumps. Digital breast tomosynthesis was performed in addition to routine CC and MLO views. Current mammographic images were evaluated by either a [employer] M-Vu or a [employer] Image[employer] CAD (computer aided detection system). No prior exams were available for comparison. The tissue of both breasts is heterogeneously dense. This may lower the sensitivity of mammography. Triangular mass markers are noted overlying the upper outer quadrants bilaterally, correlating with the palpable regions of concern. No underlying abnormality is demonstrated. Ultrasound correlation is to follow.No suspicious mass, architectural distortion, malignant type calcification, or lymph node abnormality detected. INCOMPLETE: ADDITIONAL IMAGING EVALUATION NEEDEDCorrelation with bilateral breast ultrasound was obtained and reported below.- BREAST ULTRASOUND BILATERALULTRASOUND OF BOTH BREASTS AND BOTH AXILLA: 10/05/2021No prior examswere available for comparison. Color flow and real-time ultrasound of both breasts and both axilla were performed. Crawford scale images of the real-time examination were reviewed. On the left, at the 1 o'clock position, 5 cm from the nipple, a ridge of dense fibroglandular tissue is noted to correlate with the palpable region of concern. No suspicious findings.On the right, at the 10 o'clock position, 6cm from the nipple, a ridge of dense fibroglandular tissue is noted to correlate with the palpable region of concern. Incidental note is made of a simple cyst measuring 6 x 3 x 7 mm, benign. No suspicious findings.No abnormalities were seen sonographically in either breast or either axilla. IMPRESSION: NEGATIVE There is no sonographic evidence of malignancy. Resume annual screening mammography in oneyear. Corinna Thakkar M.D. 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 The images were reviewed in soft tissue, lung and bone windows. 2 mm coronal images were reformatted.COMPARISON: None.FINDINGS:Abdomen findings:The liver, adrenals, spleen, pancreas, gallbladder, kidneysand lung windows are unremarkable.Pelvis findings:Cystic bilateral adnexa. A large left adnexal cyst is identified measuring 7.0 x 3.5 x 5.0 cm. The distal ureters, bladder , appendix and remainder of the bowel are unremarkable. Bone windows are normal.IMPRESSION:1. No acute findings.2. Enlarged cystic left adnexa measuring 7.0 x 3.5 x 5.0 cm. Recommend a follow-up pelvic ultrasound. Final D ictated by: MD Albert Roman PDictated DT/TM: 01/17/2018 9:48 pmSigned by: MD Albert Roman PSigned (Electronic Signature): 01/17/2018 9:49 [facility] 23:55:40 Test Item Value Reference Range Interpretation Comments UA Urobilinogen (test code = UA <=1.0 mg/dL 0.1-1.0 Urobilinogen) [facility] [id number] 23:55:40 Test Item Value Reference Range Interpretation Comments UA Mucus (test code = UA Mucus) Few /LPF [facility] AND [id number] 23:55:40 Test Item Value Reference Range Interpretation Comments UA Nitrite (test code Negative (05/17/14 6:55 = UA Nitrite) PM) [facility] AND [id number] 23:55:40 Test Item Value Reference Range Interpretation Comments UA Leuk Est (test Moderate *ABN*(05/17/14 code = UA Leuk Est) 6:55 PM) [facility] AND [id number] 23:55:40 Test Item Value Reference Range Interpretation Comments UA Sq Epi (test code = UA Sq Epi) Many /LPF [facility] AND [id number] 23:55:40 Test Item Value Reference Range Interpretation Comments UA WBC (test code = UA WBC) 11 <=5 [facility] AND [id number] 23:55:40 Test Item Value Reference Range Interpretation Comments UA RBC (test code = UA RBC) no gt <=2 [facility] AND [id number] 23:55:40 Test Item Value Reference Range Interpretation Comments UA Ketones (test code = UA Negative mg/dL Ketones) [facility] AND [id number] 23:55:40 Test Item Value Reference Range Interpretation Comments UA Protein (test code = UA Protein) 50 mg/dL [facility] AND [id number] 23:55:40 Test Item Value Reference Range Interpretation Comments UA Glucose (test code = UA Negative mg/dL Glucose) [facility] AND [id number] 23:55:40 Test Item Value Reference Range Interpretation Comments UA Blood (test code = Large *ABN*(05/17/14 UA Blood) 6:55 PM) [facility] AND [id number] 23:55:40 Test Item Value Reference Range Interpretation Comments UA Bili (test code = Negative *NA*(05/17/14 UA Bili) 6:55 PM) [facility] AND [id number] 23:55:40 Test Item Value Reference Range Interpretation Comments UA Spec Grav (test code = UA Spec Grav) 1.021 [facility] AND [id number] 23:55:40 Test Item Value Reference Range Interpretation Comments UA Turbidity (test code Slight *ABN*(05/17/14 = UA Turbidity) 6:55 PM) [facility] AND [id number] 23:55:40 Test Item Value Reference Range Interpretation Comments UA pH (test code = UA pH) 7.0 5.0-8.0 [facility] AND [id number] 23:55:40 Test Item Value Reference Range Interpretation Comments UA Color (test code = Yellow *NA*(05/17/14 UA Color) 6:55 PM) [facility] [id number] 23:50:00 Test Item Value Reference Range Interpretation Comments ABO/Rh (test code = ABO/Rh) O NEG [facility]CoiiuxwCZVEHEFZGJPL0690-74-15 23:50:00 Test Item Value Reference Range Interpretation Comments AGAP (test code = AGAP) 10.0 10.0-20.0 [facility] HospitalIyfjckmKYJCGQJFUBEI2032-78-96 23:50:00 Test Item Value Reference Range Interpretation Comments Chloride Lvl (test code = Chloride Lvl) 109 95-109 [facility] HospitalNzzjxvoXIVVYJJOQTMV2440-03-69 23:50:00 Test Item Value Reference Range Interpretation Comments Potassium Lvl (test code = Potassium 4.0 3.5-5.1 Lvl) [facility] HospitalPvhpfvvNCICDZBMWIWC4484-24-40 23:50:00 Test Item Value Reference Range Interpretation Comments Sodium Lvl (test code = Sodium Lvl) 141 135-145 [facility] HospitalQlssynzZHNDJTGFETLS8522-25-11 23:50:00 Test Item Value Reference Range Interpretation Comments eGFR (test code = eGFR) 84 [facility] HospitalKdoiufhUIQVGQVSPOSG6194-21-65 23:50:00 Test Item Value Reference Range Interpretation Comments Creatinine Lvl (test code = Creatinine 0.9 0.5-1.4 Lvl) [facility] Hos[id number] 23:50:00 Test Item Value Reference Range Interpretation Comments Calcium Lvl (test code = Calcium Lvl) 8.9 8.5-10.5 [facility] HospitalRbqucavKFDHNWIRPGSR7556-72-61 23:50:00 Test Item Value Reference Range Interpretation Comments BUN (test code = BUN) 19 7-22 [facility] HospitalWybkigqEFYDHVSQPPTJ7886-17-78 23:50:00 Test Item Value Reference Range Interpretation Comments Glucose Lvl (test code = Glucose Lvl) 96 70-99 [facility] HospitalQpbtyicELAQGUPVMHBY8285-09-33 23:50:00 Test Item Value Reference Range Interpretation Comments CO2 (test code = CO2) 26 24-32 [place] [id number] 23:50:00 Test Item Value Reference Range Interpretation Comments hCG Tot (test code = hCG Tot) no gt [facility] HospitalWnpfyciPNVVZOSDFC8601-52-02 23:50:00 Test Item Value Reference Range Interpretation Comments Eosinophils (test code = Eosinophils) 1.8 <=4.0 [facility] HospitalMarppxpNYLEDERRQE4525-38-27 23:50:00 Test Item Value Reference Range Interpretation Comments Monocytes (test code = Monocytes) 6.6 2.0-12.0 [facility] HospitalPxodggdDHMKXGRDTP2751-07-25 23:50:00 Test Item Value Reference Range Interpretation Comments Basophils (test code = Basophils) 0.4 <=1.0 [facility] HospitalWlzbhhcWUASJTTLXD9364-13-59 23:50:00 Test Item Value Reference Range Interpretation Comments Segs-Bands # (test code = Segs-Bands #) 6.4 1.5-8.1 [facility] HospitalXigqdhfBMNDTLFTRR8470-72-89 23:50:00 Test Item Value Reference Range Interpretation Comments Lymphocytes # (test code = Lymphocytes 3.0 1.0-5.5 #) [facility] HospitalPkigkrbKSHLKRHSOV2290-90-67 23:50:00 Test Item Value Reference Range Interpretation Comments Monocytes # (test code = Monocytes #) 0.7 <=0.8 [facility] HospitalTijozduAAXIAMCIQU4706-68-89 23:50:00 Test Item Value Reference Range Interpretation Comments Eosinophils # (test code = Eosinophils 0.2 <=0.5 #) [facility] HospitalPhgpzroQGKVSWJNKW2601-67-65 23:50:00 Test Item Value Reference Range Interpretation Comments Basophils # (test code = Basophils #) 0.0 <=0.2 [facility] HospitalKmagqocXMKPTUYIHV8955-60-97 23:50:00 Test Item Value Reference Range Interpretation Comments Segs (test code = Segs) 62.0 45.0-75.0 [facility] HospitalIsxruhqPTKSRSZIDR1293-27-67 23:50:00 Test Item Value Reference Range Interpretation Comments Lymphocytes (test code = Lymphocytes) 29.2 20.0-40.0 [facility] HospitalXeuocquJBHJUBEDXC3932-71-56 23:50:00 Test Item Value Reference Range Interpretation Comments WBC (test code = WBC) 10.3 3.7-10.4 [facility] HospitalTfcfadzIAOWIZBRDC1116-05-25 23:50:00 Test Item Value Reference Range Interpretation Comments RBC (test code = RBC) 4.47 4.20-5.40 [facility] HospitalLloxhujRHDTUVAZQI4932-36-43 23:50:00 Test Item Value Reference Range Interpretation Comments Hgb (test code = Hgb) 12.7 12.0-16.0 [facility] HospitalIfjnjuhPVEKVCKATP1021-79-82 23:50:00 Test Item Value Reference Range Interpretation Comments MCV (test code = MCV) 82.3 80.0-98.0 [facility] HospitalHhzuyewQSZTUHHBPJ8669-47-84 23:50:00 Test Item Value Reference Range Interpretation Comments Hct (test code = Hct) 36.7 36.0-48.0 [facility] HospitalJutnelnDUICSIMPGK3988-37-04 23:50:00 Test Item Value Reference Range Interpretation Comments MCH (test code = MCH) 28.4 pg 27.0-31.0 [facility]YdptgxwIWNRXKPUTM6676-21-55 23:50:00 Test Item Value Reference Range Interpretation Comments MCHC (test code = MCHC) 34.5 32.0-36.0 [facility] HospitalDppynpbJZKROAXEEC3762-62-67 23:50:00 Test Item Value Reference Range Interpretation Comments RDW (test code = RDW) 13.7 11.5-14.5 [facility] HospitalFqaitffJAARNWDXMS3606-65-22 23:50:00 Test Item Value Reference Range Interpretation Comments MPV (test code = MPV) 7.7 7.4-10.4 [facility] HospitalVjwflrtHKHXYQENIC0657-43-51 23:50:00 Test Item Value Reference Range Interpretation Comments Platelet (test code = Platelet) 289 108-450 [facility] HospitalVwwcefwWMTWDMVSXK4954-92-21 23:50:00 Test Item Value Reference Range Interpretation Comments [facility] HIV 4th GEN (test Negative (05/17/14 6:50 code = [facility] HIV 4th PM) GEN) [facility]YmeehztXIRLVNDVD3271-03-82 15:00:00 Test Item Value Reference Range Interpretation Comments Etoh (%) (test code = Etoh (%)) <0.0030 [facility]CdxgwguAFPYKCHQR6016-16-73 15:00:00 Test Item Value Reference Range Interpretation Comments Ethanol Lvl (test code = Ethanol Lvl) no gt [facility] ResourcesClrtkoyEIOZLGCHW7212-67-08 14:15:00 Test Item Value Reference Range Interpretation Comments A/G Ratio (test code = A/G Ratio) 1.1 1 0.7-1.6 N [facility] ResourcesZlealtqMNFPVJVUU6293-24-96 14:15:00 Test Item Value Reference Range Interpretation Comments B/C Ratio (test code = B/C Ratio) 19.0 1 6-25 N [facility]SjsmnkgTUCRWQKQG5024-45-81 14:15:00 Test Item Value Reference Range Interpretation Comments Globulin (test code = Globulin) 3.6 2.0-4.0 N [facility]PsvpozoHFDEHPLRG4632-41-68 14:15:00 Test Item Value Reference Range Interpretation Comments AGAP (test code = AGAP) 12.7 10.0-20.0 N [facility]CiadjgxOWWSNECKK9007-71-67 14:15:00 Test Item Value Reference Range Interpretation Comments ALT (test code = ALT) 19.0 <=65 N [facility]EkilyoqCLVXFGCQT1607-50-64 14:15:00 Test Item Value Reference Range Interpretation Comments Alk Phos (test code = Alk Phos) 48.0 39-136 N [facility]OkcwgrfRIDUQMDYX7413-85-90 14:15:00 Test Item Value Reference Range Interpretation Comments Bili Total (test code = Bili Total) 0.4 0.2-1.3 N [facility]PzrxqmlYIBEFHGJE3062-77-10 14:15:00 Test Item Value Reference Range Interpretation Comments AST (test code = AST) 11.0 <=37 N [facility]ZmjnqnkBSQNUZBTT1381-91-83 14:15:00 Test Item Value Reference Range Interpretation Comments Calcium Lvl (test code = Calcium Lvl) 8.6 8.5-10.5 N [facility] ResourcesQiuwyooBQLEKUHAJ8887-76-10 14:15:00 Test Item Value Reference Range Interpretation Comments Albumin Lvl (test code = Albumin Lvl) 3.9 3.5-5.0 N [facility]NtxgrxnDFHCFDAZO6241-88-35 14:15:00 Test Item Value Reference Range Interpretation Comments Total Protein (test code = Total 7.5 6.4-8.4 N Protein) [facility] ResourcesZrsfxilFSALUHPFW0520-41-52 14:15:00 Test Item Value Reference Range Interpretation Comments Potassium Lvl (test code = Potassium 3.7 3.5-5.1 N Lvl) [facility] ResourcesCtqdpnmAVHFYCPCZ0284-53-32 14:15:00 Test Item Value Reference Range Interpretation Comments Chloride Lvl (test code = Chloride Lvl) 109.0 95-109 N [facility] ResourcesAwzbfgqHXXSGMNDO5275-16-41 14:15:00 Test Item Value Reference Range Interpretation Comments CO2 (test code = CO2) 24.0 24-32 N [facility] ResourcesFloaqxmGDKCYVLWV1068-82-20 14:15:00 Test Item Value Reference Range Interpretation Comments Creatinine Lvl (test code = Creatinine 0.9 0.5-1.4 N Lvl) [facility]XkqjpwwLUQCNGBMP2482-89-96 14:15:00 Test Item Value Reference Range Interpretation Comments BUN (test code = BUN) 17.0 7-22 N [facility] ResourcesGeuwtpeBWPYLDFDV5081-45-86 14:15:00 Test Item Value Reference Range Interpretation Comments Sodium Lvl (test code = Sodium Lvl) 142.0 135-145 N [facility]AmivxjbXFTMJVDTM5517-53-26 14:15:00 Test Item Value Reference Range Interpretation Comments Glucose Lvl (test code = Glucose Lvl) 98.0 [facility] HospitalZufnohoZTUWNFPIBY1213-84-45 14:15:00 Test Item Value Reference Range Interpretation Comments Eosinophils # (test code = Eosinophils 0.1 <=0.5 N #) [facility] HospitalZguurvmPLXSEZEOBQ5249-39-90 14:15:00 Test Item Value Reference Range Interpretation Comments Lymphocytes # (test code = Lymphocytes 1.7 1.0-5.5 N #) [facility] HospitalDizxavfRXACRBQVNI3246-26-94 14:15:00 Test Item Value Reference Range Interpretation Comments Monocytes # (test code = Monocytes #) 0.5 <=0.8 N [facility] HospitalFxdaqknXSNBMOSFIE4428-85-12 14:15:00 Test Item Value Reference Range Interpretation Comments Segs-Bands # (test code = Segs-Bands #) 8.3 1.5-8.1 H [facility] HospitalSnfqfaoFKDVVXRSSI8537-01-19 14:15:00 Test Item Value Reference Range Interpretation Comments Segs (test code = Segs) 78.0 45.0-75.0 H [facility] HospitalTksfxapGZDXHAYYDY4193-72-94 14:15:00 Test Item Value Reference Range Interpretation Comments Basophils (test code = Basophils) 0.4 <=1.0 N [facility] HospitalKlfcfgeSELGDKBKPV3458-45-41 14:15:00 Test Item Value Reference Range Interpretation Comments Lymphocytes (test code = Lymphocytes) 16.2 20.0-40.0 L [facility] HospitalGtvjhqtUETWUHHGLR3526-06-02 14:15:00 Test Item Value Reference Range Interpretation Comments Monocytes (test code = Monocytes) 4.5 2.0-12.0 N [facility] HospitalQbvqhbdBROKBQEBNL9242-75-25 14:15:00 Test Item Value Reference Range Interpretation Comments Eosinophils (test code = Eosinophils) 0.9 <=4.0 N [facility] HospitalPafcgasBSJBGAOFLN8152-95-54 14:15:00 Test Item Value Reference Range Interpretation Comments RDW (test code = RDW) 13.9 11.5-14.5 N [facility] HospitalKjxriqoARVGMOPUAF1957-73-72 14:15:00 Test Item Value Reference Range Interpretation Comments Platelet (test code = Platelet) 274.0 133-450 N [facility] HospitalDbdgvxyZZVEACTJUF8493-95-57 14:15:00 Test Item Value Reference Range Interpretation Comments MPV (test code = MPV) 7.6 7.4-10.4 N [facility] HospitalPttjtjoXMTDKLJRBU2367-33-26 14:15:00 Test Item Value Reference Range Interpretation Comments MCH (test code = MCH) 28.5 pg 27.0-31.0 N [facility] HospitalOrhfrvqSXXKFHMSKT1217-25-19 14:15:00 Test Item Value Reference Range Interpretation Comments MCHC (test code = MCHC) 34.6 32.0-36.0 N [facility] HospitalHzqgysySSIRIVRRCT4123-74-17 14:15:00 Test Item Value Reference Range Interpretation Comments Hgb (test code = Hgb) 12.4 12.0-16.0 N [facility] HospitalFqgqusnCKABDKQHYM1652-03-59 14:15:00 Test Item Value Reference Range Interpretation Comments RBC (test code = RBC) 4.36 4.20-5.40 N [facility] HospitalExkuxrdWHYBANMEGC8469-53-43 14:15:00 Test Item Value Reference Range Interpretation Comments Hct (test code = Hct) 36.0 36.0-48.0 N [facility] HospitalTeiyypaQNUCDYDVZL6990-49-12 14:15:00 Test Item Value Reference Range Interpretation Comments MCV (test code = MCV) 82.5 81.0-99.0 N [facility] HospitalZlsqtodVAQARVJEKV1554-47-34 14:15:00 Test Item Value Reference Range Interpretation Comments WBC (test code = WBC) 10.7 3.7-10.4 [facility] HospitalGkcjppoWRQWZDYYZ5647-72-27 14:05:00 Test Item Value Reference Range Interpretation Comments U Preg (test code = U Negative 4(05/10/2011 N Preg) 09:05:00) ?? [facility] HospitalOcxrkcpMOERNVVODB2393-83-59 14:05:00 Test Item Value Reference Range Interpretation Comments UA Bili (test code = Negative (05/10/2011 N UA Bili) 09:05:00) ?? [facility] HospitalDlvktsvBNKEMTUEGO8468-76-15 14:05:00 Test Item Value Reference Range Interpretation Comments UA Ketones (test code = Trace A UA Ketones) *ABN*(05/10/2011 09:05:00) ?? [facility] HospitalNvbbejzTHJXUHWYQJ9507-93-08 14:05:00 Test Item Value Reference Range Interpretation Comments UA Nitrite (test code Negative (05/10/2011 N = UA Nitrite) 09:05:00) [facility]FqezzfnMUSJXLKATM1730-46-55 14:05:00 Test Item Value Reference Range Interpretation Comments UA Urobilinogen (test code = UA 0.2 0.1-1.0 N Urobilinogen) [facility] HospitalWiitzacUYNUYRTWNW1957-62-98 14:05:00 Test Item Value Reference Range Interpretation Comments UA Blood (test code = Moderate A UA Blood) *ABN*(05/10/2011 09:05:00) ?? [facility] HospitalSgmozcbKBWCZAXWPZ2778-34-66 14:05:00 Test Item Value Reference Range Interpretation Comments UA Glucose (test code Negative (05/10/2011 N = UA Glucose) 09:05:00) ?? [facility] HospitalHxyavggQIRXWDNNHJ8237-57-06 14:05:00 Test Item Value Reference Range Interpretation Comments UA Protein (test code = 30 mg/dL A UA Protein) *ABN*(05/10/2011 09:05:00) ?? [facility] HospitalAvfvsieIPXICGYTEK2708-47-31 14:05:00 Test Item Value Reference Range Interpretation Comments UA Leuk Est (test Negative (05/10/2011 N code = UA Leuk Est) 09:05:00) ?? [facility] HospitalEembtsgVEGSHRGNUI5468-71-26 14:05:00 Test Item Value Reference Range Interpretation Comments UA pH (test code = UA pH) 6.0 1 5.0-8.0 N [facility] HospitalEsupxumZZCZGMNHQN7152-98-08 14:05:00 Test Item Value Reference Range Interpretation Comments UA Spec Grav (test code = UA Spec 1.02 1 N Grav) [facility] HospitalUohisecVPETPJBFZO5242-11-66 14:05:00 Test Item Value Reference Range Interpretation Comments UA Turbidity (test code = Clear (05/10/2011 N UA Turbidity) 09:05:00) ?? [facility] HospitalPyxabmzODAUDCRNMI5451-05-56 14:05:00 Test Item Value Reference Range Interpretation Comments UA Color (test code = Yellow (05/10/2011 N UA Color) 09:05:00) ?? [id number] 14:05:00 Test Item Value Reference Range Interpretation Comments UA Bacteria (test code = Few /HPF UA Bacteria) *NA*(05/10/2011 09:05:00) ?? [id number] 14:05:00 Test Item Value Reference Range Interpretation Comments UA Mucus (test code = Few /LPF UA Mucus) *NA*(05/10/2011 09:05:00) ?? [id number] 14:05:00 Test Item Value Reference Range Interpretation Comments UA WBC (test code = UA WBC) 19.0 <=5 H [id number] 14:05:00 Test Item Value Reference Range Interpretation Comments UA Sq Epi (test code = Many /LPF A UA Sq Epi) *ABN*(05/10/2011 09:05:00) ?? [facility] [id number] 14:05:00 Test Item Value Reference Range Interpretation Comments UA RBC (test code = UA RBC) 2.0 <=2 N [facility]
[2023-07-01] MEDS ORDERED: ONDANSETRON 4 MG/2 ML VIAL ONE (20:47)
[2023-07-01] MEDS ORDERED: NA CHLORIDE 0.9% 1,000 ML ONE (20:47)
--- NOTE | 2023-07-01 21:36 | ER ---
Nurse's Notes [facility] Name: Cookie Anderson Age: 43 yrs Sex: Female : 1980 Arrival Date: 07/01/2023 Time: 18:48 Bed 18 Private MD: Diagnosis: nausea and vomiting secondary to semaglutide Presentation: 07/01 18:57 Chief complaint: Patient states: she took a wegovy shot approx 2-3 hours ago, and since ap3 then has felt like her heart is racing, nauseated and she has vomited a few times. Coronavirus screen: At this time, the client does not indicate any symptoms associated with coronavirus-19. Ebola Screen: No symptoms or risks identified at this time. Initial Sepsis Screen: Does the patient meet any 2 criteria? HR > 90 bpm. Does the patient have a suspected source of infection? No. Patient's initial sepsis screen is negative. Risk Assessment: Do you want to hurt yourself or someone else? Patient reports no desire to harm self or others. Onset of symptoms was July 01, 2023. 18:57 Method Of Arrival: Ambulatory ap3 18:57 Acuity: YVONNE 3 ap3 Triage Assessment: 19:00 General: Appears in no apparent distress. Behavior is calm, cooperative, appropriate ap3 for age. Pain: Complains of pain in abdomen. Neuro: Level of Consciousness is awake, alert, obeys commands, Oriented to person, place, time, situation, Appropriate for age. Cardiovascular: Patient's skin is warm and dry. Respiratory: Airway is patent Respiratory effort is even, unlabored, Respiratory pattern is regular, symmetrical. GI: Reports nausea, vomiting. 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 - Social history:: Smoking status: Patient denies any tobacco usage or history of. Screenin:01 [facility] ED Fall Risk Assessment (Adult) History of falling in the last 3 months, ap3 including since admission No falls in past 3 months (0 pts). Abuse screen: Denies threats or abuse. Nutritional screening: No deficits noted. Tuberculosis screening: No symptoms or risk factors identified. Assessment: 20:42 General: Appears in no apparent distress. comfortable, Behavior is calm, cooperative. jw7 Pain: Denies pain. Neuro: [place]ath Agitation-Sedation Scale (RASS): 0 - Alert and Calm Level of Consciousness is awake, alert, obeys commands, Oriented to person, place, time, situation. Cardiovascular: Capillary refill < 3 seconds Clubbing of nail beds is absent JVD is absent Patient's skin is warm and dry. Respiratory: No deficits noted. GI: Abdomen is round non-distended, Reports nausea, vomiting. : No deficits noted. No signs and/or symptoms were reported regarding the genitourinary system. EENT: No deficits noted. No signs and/or symptoms were reported regarding the EENT system. Derm: No deficits noted. No signs and/or symptoms reported regarding the dermatologic system. Musculoskeletal: No deficits noted. No signs and/or symptoms reported regarding the musculoskeletal system. 21:54 Reassessment: Patient appears in no apparent distress at this time. Patient and/or jw7 family updated on plan of care and expected duration. Pain level reassessed. Patient is alert, oriented x 3, equal unlabored respirations, skin warm/dry/pink. Patient states symptoms have improved. Vital Signs: 18:57 BP 142 / 100; Pulse 100; Resp 19; Temp 98.2; Pulse Ox 100% ; Weight 85.73 kg; ap3 20:25 BP 150 / 107; Pulse 103; Resp 18 S; Pulse Ox 98% on R/A; jw7 21:30 BP 112 / 94; Pulse 84; Resp 17 S; Pulse Ox 99% on R/A; jw7 ED Course: 18:50 Patient arrived in ED. jj6 18:59 Triage completed. ap3 19:01 Arm band placed on right wrist. ap3 19:34 Bushra Murillo PA-C is PHCP. sb4 19:34 Juan Jose Mcghee MD is Attending Physician. sb4 20:17 Norma Mcdonnell RN is Primary Nurse. jw7 20:25 Patient has correct armband on for positive identification. Placed in gown. Bed in low jw7 position. Call light in reach. 20:42 Inserted saline lock: 20 gauge in right antecubital area, using aseptic technique. jw7 21:57 No provider procedures requiring assistance completed. jw7 21:58 Provided Education on: discharge instructions and medication usage. jw7 22:14 IV discontinued, intact, bleeding controlled, No redness/swelling at site. Pressure jw7 dressing applied. Administered Medications: 20:43 Drug: NS 0.9% IV 1000 ml IV at 1 bolus Per protocol; 1000 mL bolus Route: IV; Rate: 1 jw7 bolus; Site: right antecubital; 21:58 Follow up: Response: No adverse reaction; IV Status: Completed infusion; IV Intake: jw7 1000ml 20:43 Drug: Ondansetron IVP 4 mg IVP once; over 2 minutes Route: IVP; Site: right antecubital;jw7 21:58 Follow up: Response: No adverse reaction jw7 22:13 Not Given (Other Intervention Used): mdvffindhwku07.5 mg IVP once jw7 22:14 Drug: Promethazine PO 25 mg PO once Route: PO; jw7 22:14 Follow up: Response: No adverse reaction jw7 Medication: 21:57 VIS not applicable for this client. jw7 Intake: 21:58 IV: 1000ml; Total: 1000ml. jw7 Outcome: 21:35 Discharge ordered by . sb4 22:14 Discharged to home ambulatory, with family, jw7 22:14 Condition: stable 22:14 Discharge instructions given to patient, Instructed on discharge instructions, follow up and referral plans. medication usage, Demonstrated understanding of instructions, follow-up care, medications, Prescriptions given X 1, 22:15 Patient left the ED. jw7 Signatures: Gretchen Alex RN RN ap3 Holly Banuelos6 Norma Mcdonnell RN RN jw7 Bushra Murillo PAKalli PAKalli sb4 Corrections: (The following items were deleted from the chart) 19:00 18:57 Chief complaint: Patient states: she took a wygovy shot approx 2-3 hours ago, and ap3 since then has felt like her heart is racing, nauseated and she has vomited a few times ap3
--- NOTE | 2023-07-01 21:36 | EDPHYS ---
Physician Documentation [facility] Name: Cookie Anderson Age: 43 yrs Sex: Female : 1980 Arrival Date: 07/01/2023 Time: 18:48 Bed 18 Private MD: ED Physician Juan Jose Mcghee HPI: 07/01 20:49 This 43 yrs old Female presents to ER via Ambulatory with complaints of sb4 Nausea/Vomiting, Irregular Pulse. 07/02 02:33 patient states that she purchased wegovy on [employer] and self administered sb4 the medication today. she states a few hours later, she started experiencing nausea, vomiting, and heart palpitations. of note, she took the maximum dose of the medication without medical supervision. denies any abdominal pain, diarrhea, fever, chills, sob. 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 - Social history:: Smoking status: Patient denies any tobacco usage or history of. ROS: 07/02 02:33 Constitutional: Negative for fever, chills, and weight loss, sb4 Cardiovascular: Positive for palpitations, Abdomen/GI: Positive for nausea and vomiting, All other systems are negative, Exam: 02:33 Constitutional: This is a well developed, well nourished patient who is awake, alert, sb4 and in no acute distress. Head/Face: Normocephalic, atraumatic. Eyes: Extra-ocular motions intact. Periorbital areas with no swelling, redness, or edema. ENT: Mucous membranes moist. Cardiovascular: Regular rate and rhythm with a normal S1 and S2. Respiratory: Lungs have equal breath sounds bilaterally, clear to auscultation and percussion. No rales, rhonchi or wheezes noted. No increased work of breathing, no retractions or nasal flaring. Abdomen/GI: Soft, non-tender, no distension. Skin: Warm, dry with normal turgor. Normal color with no rashes, no lesions, and no evidence of cellulitis. MS/ Extremity: Pulses equal, no cyanosis. Neurovascular intact. Full, normal range of motion. Vital Signs: 07/01 18:57 BP 142 / 100; Pulse 100; Resp 19; Temp 98.2; Pulse Ox 100% ; Weight 85.73 kg; ap3 20:25 BP 150 / 107; Pulse 103; Resp 18 S; Pulse Ox 98% on R/A; jw7 21:30 BP 112 / 94; Pulse 84; Resp 17 S; Pulse Ox 99% on R/A; jw7 MDM: 19:34 Patient medically screened. sb4 07/02 02:33 Differential diagnosis: gastritis, viral gastroenteritis, medication adverse reaction. sb4 Data reviewed: vital signs, nurses notes, EKG, and as a result, I will discharge patient. Test considered but Not performed: Labs: not indicated, symptoms secondary to medication. Counseling: I had a detailed discussion with the patient and/or guardian regarding the historical points, exam findings, and any diagnostic results supporting the discharge/admit diagnosis, to return to the emergency department if symptoms worsen or persist or if there are any questions or concerns that arise at home, immediately stop taking wegovy, do not take again, only take medication as prescribed by a licensed medical provider. 07/01 20:27 Order name: EKG; Complete Time: 20: sb4 EC/19 20:56 Rate is 78 beats/min. Rhythm is regular, Normal Sinus Rhythm. NM interval is normal at sb4 134 msec. QRS interval is normal at 84 msec. QT interval is normal at 430 msec. No Q waves. T waves are Normal. No ST changes noted. Clinical impression: Normal ECG. Interpreted by me. Reviewed by me. Administered Medications: 20:43 Drug: NS 0.9% IV 1000 ml IV at 1 bolus Per protocol; 1000 mL bolus Route: IV; Rate: 1 jw7 bolus; Site: right antecubital; 21:58 Follow up: Response: No adverse reaction; IV Status: Completed infusion; IV Intake: jw7 1000ml 20:43 Drug: Ondansetron IVP 4 mg IVP once; over 2 minutes Route: IVP; Site: right antecubital;jw7 21:58 Follow up: Response: No adverse reaction jw7 22:13 Not Given (Other Intervention Used): epfvjihujjqo78.5 mg IVP once jw7 22:14 Drug: Promethazine PO 25 mg PO once Route: PO; jw7 22:14 Follow up: Response: No adverse reaction jw7 Disposition Summary: 07/01/23 21:35 Discharge Ordered Notes: Location: Home sb4 Problem: new sb4 Symptoms: have improved sb4 Condition: Stable sb4 Diagnosis - nausea and vomiting secondary to semaglutide sb4 Followup: sb4 - With: Emergency Department - When: As needed - Reason: Trouble breathing, Worsening of condition Discharge Instructions: - Discharge Summary Sheet sb4 - Nausea and Vomiting, Adult sb4 Forms: - Medication Reconciliation Form sb4 - Thank You Letter sb4 - Antibiotic Education sb4 - Prescription Opioid Use sb4 - Patient Portal Instructions sb4 - Leadership Thank You Letter sb4 Prescriptions: - ondansetron 4 mg Oral Tablet,disintegrating - take 1 tablet ORAL route every 12 hours as needed for nausea and vomiting; 12 sb4 tablet; Refills: 0, Product Selection Permitted Addendum: 07/03/2023 10:36 I was immediately available for consultation during this patient's visit. I did not e c2 personally see the patient or guide the patient's care.. Signatures: Gretchen Alex RN RN ap3 Norma Mcdonnell RN RN jw7 Bushra Murillo PA-C PA-C sb4 Juan Jose Mcghee MD MD ec2
[2023-07-01 22:23] VITALS: TEMP 98.2
[2023-07-01] MEDS ORDERED: PROMETHAZINE 25 MG TABLET ONE (22:23)
[2023-07-01 22:35] VITALS: BP 112/94; O2SAT 99
--- NOTE | 2023-07-04 16:59 | EKG ---
Test Date: 2023-07-01 Test Time: 20:49:46 Track Service Person: HO MEASUREMENT RESULTS: Intervals: Rate: 78 MD: 134 QRSD: 84 QT: 378 QTc: 430 [place]: P: 15 MD: 134 QRS: -17 T: 21 INTERPRETIVE STATEMENTS: Normal sinus rhythm Possible Anterior infarct, age undetermined Abnormal ECG No previous ECG available for comparison Electronically Signed On 07-04-23 16:53:20 RESOURCE DEVELOPMENT DIRECTOR by José Luis Salgado
== END 2023-07-01 22:15 | disposition home or self-care (01) ==
LOC: ER 18:48
DX: R11.2 Nausea with vomiting, unspecified (principal)
CPT/HCPCS: 93005; 96361; 96374; 99284; J2405; J7030; Q0169